=== PATIENT | female | born 1985 | race Asian ===

== ENCOUNTER 2017-07-26 13:10 | Emergency (ER) | END 2017-07-26 19:00 | disposition home or self-care (01) ==

== ENCOUNTER 2018-02-06 11:34 | Outpatient (CLI) | END 2018-02-06 13:39 | disposition home or self-care (01) ==

== ENCOUNTER 2018-02-08 20:15 | Inpatient (IN) | END 2018-02-13 13:40 | disposition home or self-care (01) | DRG 766 ==

== ENCOUNTER 2018-03-28 15:28 | Emergency (ER) | END 2018-03-28 18:15 | disposition home or self-care (01) ==

== ENCOUNTER 2018-07-04 16:09 | Emergency (ER) | payer MEDICAID ==
[~2018-07-04] VITALS: Wt 57.8 kg
[~2018-07-04 16:09] MED LIST: CEPH-443 PO; IRON1TAB78 PO; PREN-93 PO
--- NOTE | 2018-07-04 16:46 | ERD ---
ER Documentation Chief Complaint Chief Complaint cc bartholin cyst HPI 33-year-old female, presents to the emergency department, complaining of Bartholin abscess of the right labia for 7 days. She has been seen twice this week and was started on clindamycin, the patient is currently breast-feeding, she has not had an incision and drainage of the abscess. She denies fever, no chills. No vaginal discharge, no urinary symptoms. ROS All systems reviewed and are negative except as per history of present illness. Medications Home Meds Active Scripts Cephalexin* (Keflex*) 500 Mg Capsule, 500 MG PO BID for 7 Days, CAP Prov:DENISE TOMLIN Marlon 03/28/18 Reported Medications Iron,Carbonyl/Vit C/Vit B12/Fa (IRON 100 PLUS TABLET) 1 Each Tablet, 1 EACH PO, TAB 02/08/18 Vit No.124/Iron/FA ( Vitamin Tablet) 1 Each Tablet, 1 EACH PO, TAB 02/08/18 Allergies Allergies: Coded Allergies: No Known Allergy (Unverified , 03/28/18) PMhx/Soc History of Surgery: Yes ( ) Hx Alcohol Use: No Hx Substance Use: No Hx Tobacco Use: No Physical Exam Vitals Vital Signs Date Temp Pulse Resp B/P (MAP) Pulse Ox O2 O2 Flow FiO2 Time Delivery Rate 07/04/18 98.6 78 20 123/71 99 16:13 (88) Physical Exam Const: No acute distress Head: Atraumatic Eyes: Normal Conjunctiva ENT: Normal External Ears, Nose and Mouth. Neck: Full range of motion. No meningismus. Resp: Clear to auscultation bilaterally Cardio: Regular rate and rhythm, no murmurs Abd: Soft, non tender, non distended. Normal bowel sounds. : External genitalia, right labia 5 x 5 cm Bartholin abscess. Skin: No petechiae or rashes Back: No midline or flank tenderness Ext: No cyanosis, or edema Neur: Awake and alert Psych: Normal Mood and Affect Results 24 hrs Laboratory Tests Test 07/04/18 17:00 07/04/18 17:02 Bedside Urine pH (LAB) 6.5 Bedside Urine Protein (LAB) Negative Bedside Urine Glucose (UA) Negative Bedside Urine Ketones (LAB) Negative Bedside Urine Blood Negative Bedside Urine Nitrite (LAB) Negative Bedside Urine Leukocyte Esterase (L Negative POC Beta HCG, Qualitative NEGATIVE Current Medications Medications Dose Sig/Temo Start Time Status Last (Trade) Ordered Route PRN Stop Time Admin Dose Reason Admin Lidocaine 5 ml ONCE ONCE 07/04/18 DC (Xylocaine INFIL 17:00 07/04/18 1% (Mpf)) 17:01 Procedures/MDM Vital signs stable, Differential diagnosis include but not limited to: Cellulitis, Bartholin abscess, abscess, viral warts, perianal abscess. Low suspicion for acute systemic infection Physical examination and clinical presentation consistent most likely with Bartholin gland abscess. During the ED course the patient remained stable, no new complaints. The patient received treatment with incision and drainage of the area presenting overall improvement of the symptoms. Vision and drainage: Informed consent obtained, risk and benefits discussed with patient. Indication: Bartholin abscess Location: Right labia Area cleaned and sterilized with chlorhexidine solution, 2 mL of lidocaine without epi was infiltrated in the area of the incision. 5 mm incision was made behind the hymnal ring, the abscess young were stabilized with forceps. Abscess was drained with breaking up loculation with a hemostat. The patient tolerated well the procedure without complications. The patient was instructed to follow up with the primary care provider in the next 48h. If symptoms persist, worsen or new symptoms develop, then patient should return to the ED immediately. Instructions explained and given directly by me to the patient with acknowledgment and demonstrated understanding. Disclaimer: Inadvertent spelling and grammatical errors are likely due to EHR/dictation software use and do not reflect on the overall quality of patient care. Also, please note that the electronic time recorded on this note does not necessarily reflect the actual time of the patient encounter. Departure Diagnosis: Primary Impression: Bartholin's gland abscess Condition: Stable Additional Instructions: Thank you very much for allowing us to participate in your care. Your health and safety is our top priority at [facility]. Call your primary care doctor TOMORROW for an appointment during the next 2-4 days and bring all the information and medications prescribed. Have prescriptions filled and follow precisely the directions on the label. If the symptoms get worse and your provider is unavailable, return to the Emergency Department immediately. SHIMA FIELDS MD Jul 04, 2018 16:46
[2018-07-04] MEDS ORDERED: LIDOCAINE 1% (MPF) 5 ML VIAL INFIL ONE (17:00)
[2018-07-04] MEDS ORDERED: IBUP-1561 PO (17:42)
== END 2018-07-04 17:56 | disposition home or self-care (01) ==
LOC: FTE 16:09
DX: N75.1 Abscess of Bartholin's gland (principal)
CPT/HCPCS: 56420; 81003; 81025; Z7502; Z7610